=== PATIENT | female | born 2000 | race Caucasian/White ===

== ENCOUNTER 2019-10-04 11:56 | Emergency (ER) | payer MEDICAID ==
[~2019-10-04] VITALS: Ht 157.5 cm; Wt 68.9 kg
[2019-10-04 12:30] VITALS: BP_SYST 150
--- NOTE | 2019-10-04 15:38 | NUR ---
Patient to ER bed CH1 to gown for evaluation. Side rails up.
--- NOTE | 2019-10-04 15:40 | NUR ---
Patient arrived in the ED c/o nausea and bloating that started a couple of days ago. Patient stated her test at home came back positive. LMP 08/21/19. Patient is concerned since she didn't know she is , she's been drinking and smoking over the holidays. Patient is alert and oriented x4, respirations even and unlabored, speaking in full sentences and ambulating with a steady gait. VSS, pain level 0/10. Informed of the wait time. Instructed to notify ED staff for any changes in condition or wosrening of symptoms. Patient verbalized understanding.
--- NOTE | 2019-10-04 15:45 | NUR ---
ER MIKALA Alamo at bedside examining patient.
--- NOTE | 2019-10-04 16:25 | NUR ---
ER DIRECTOR [employer] Jenn Alamo at bedside giving discharge instructions to the patient.
[2019-10-04 16:33] LABS: BILIRUBIN,URINE NEGATIVE (NEGATIVE); BLOOD, URINE NEGATIVE (NEGATIVE); CLARITY/URINE CLEAR (CLEAR); COLOR,URINE YELLOW (YELLOW); GLUCOSE,URINE NEGATIVE (NEGATIVE); KETONES,URINE NEGATIVE (NEGATIVE); LEUKOCYTE ESTERASE ,URINE NEGATIVE (NEGATIVE); NITRITE, URINE NEGATIVE (NEGATIVE); PH,URINE 6.5 (5.0-8.0); PROTEIN URINE NEGATIVE (NEGATIVE); UROBILINOGEN,URINE 0.2 (0.2-1.0)
--- NOTE | 2019-10-04 16:36 | NUR ---
Patient given written and verbal discharge instructions and verbalizes understanding. ER MD discussed with patient the results and treatment provided. Patient in stable condition. ID arm band removed. Rx of given. Patient educated on pain management and to follow up with PMD. Pain Scale 0/10. Opportunity for questions provided and answered. Medication side effect fact sheet provided.
[2019-10-04 19:35] VITALS: BP_SYST 150
== END 2019-10-04 19:35 | disposition home or self-care (01) ==
LOC: SED 11:56
DX: O99.321 Drug use complicating pregnancy, first trimester (principal); O16.1 Unspecified maternal hypertension, first trimester; F12.90 Cannabis use, unspecified, uncomplicated; Z3A.01 Less than 8 weeks gestation of pregnancy
CPT/HCPCS: 36415; 81003; 81025; 84702-TC; 99283

== ENCOUNTER 2019-10-21 21:16 | Emergency (ER) | payer MEDICAID ==
[~2019-10-21] VITALS: Ht 162.6 cm; Wt 98.9 kg
[2019-10-21 21:20] VITALS: BP_SYST 144
--- NOTE | 2019-10-21 21:20 | NUR ---
Patient triaged and placed in waiting room. VSS and patient appears in no acute distress at this time. Accompanied by , awaiting available bed, and MD notified of need for MSE.
--- NOTE | 2019-10-21 21:22 | NUR ---
Patient complains of vaginal bleeding since 9pm today. Pt states she is 8 weeks and started to notice that blood clots coming from vaginal region. Pt had saturated 1 pad since then. Pt denies pain but states she feels bloating. Pt denies N/V or fever. NO other injuries/complaints per patient or noted.
--- NOTE | 2019-10-21 22:29 | NUR ---
Patient to ER bed 7 to gown for evaluation. Side rails up. Report given to KIN WADDELL.
[2019-10-21] MEDS ORDERED: NACL 0.9% 1,000 ML IV ONE (22:45)
--- NOTE | 2019-10-21 23:14 | NUR ---
# 20 gauge angiocath placed to RT HAND. Use of asceptic technique. Opsite placed over site. Blood return noted. Blood for lab drawn from site. Flushed with 10 cc of normal saline. No evidence of infiltration noted. Patient tolerated well.
[2019-10-22 00:16] LABS: BILIRUBIN,URINE NEGATIVE (NEGATIVE); BLOOD, URINE 2+ (NEGATIVE); CLARITY/URINE CLEAR (CLEAR); COLOR,URINE YELLOW (YELLOW); GLUCOSE,URINE NEGATIVE (NEGATIVE); KETONES,URINE NEGATIVE (NEGATIVE); LEUKOCYTE ESTERASE ,URINE NEGATIVE (NEGATIVE); NITRITE, URINE NEGATIVE (NEGATIVE); PROTEIN URINE NEGATIVE (NEGATIVE); UROBILINOGEN,URINE 0.2 (0.2-1.0)
[2019-10-22 00:33] LABS: BACTERIA,URINE FEW /HPF (None Seen); WBC,URINE 0-3 /HPF (0-3)
[2019-10-22 00:40] VITALS: BP_SYST 131
--- NOTE | 2019-10-22 00:40 | NUR ---
Patient given written and verbal discharge instructions and verbalizes understanding. ER MD discussed with patient the results and treatment provided. Patient in stable condition. ID arm band removed. IV catheter removed intact and dressing applied, no active bleeding. No Rx given. Patient educated on pain management and to follow up with PMD. Pain Scale 0. Opportunity for questions provided and answered. Medication side effect fact sheet provided.
== END 2019-10-22 00:40 | disposition home or self-care (01) ==
LOC: SED 21:16
DX: O34.11 Maternal care for benign tumor of corpus uteri, first trimester (principal); O46.91 Antepartum hemorrhage, unspecified, first trimester; Z3A.01 Less than 8 weeks gestation of pregnancy
CPT/HCPCS: 36415; 76801; 81000; 81025; 84702; 99284; J7030